=== PATIENT | male | born 1940 | race Caucasian/White ===

== ENCOUNTER → 2016-07-13 | Outpatient (CLI) | payer MEDICARE, OTHER ==
[~2016-07-13] MED LIST: CELEXA DPS20 MG PO; COMPAZINE10 MG PO; COUMADIN10 MG PO; COUMADIN7.5 MG PO; DECADRON-DPS1 MG PO; DECADRON-DPS4 MG PO; DELTASONE DPS20 MG PO; DOCUSATE SODIU100 M1 PO; DUONEB DPS3 ML IH; GLUCOPHAGE DPS850 MG PO; GLUCOPHAGE-DPS500 MG PO; KEPPRA DPS500 MG PO; LANOXIN DPS0.125 MG PO; LASIX DPS40 MG PO; LEVAQUIN DPS500 MG PO; LEVEMIR100 UNIT/1 SQ; LOVENOX DP40 MG/0.4 SQ; MICRO-K DPS10 MEQ PO; NORCO 5-325 TA1 EACH PO; NORMAL SALINE FL5 ML IV; NOVOLIN N100 UNIT/1 SQ; NOVOLIN R100 UNIT/1 SQ; PEPCID DPS20 MG PO; TYLENOL DPS325 MG PO; VANTIN DPS200 MG PO; VITAMIN B-121000 MCG PO; VITAMIN D31000 UNIT PO; ZEBETA5 MG PO; ZIAC 2.52.5 MG PO
== END | disposition home or self-care (01) ==
LOC: PTH.S 07-12 15:00
DX: R04.2 Hemoptysis (principal)

== ENCOUNTER 2016-07-14 06:28 | Day surgery (SDC) | payer MEDICARE, OTHER ==
[~2016-07-14] VITALS: Ht 185.4 cm; Wt 105.6 kg
[2016-10-23] MEDS ORDERED: LANOXIN DPS0.125 MG PO (08:31)
[2016-10-23] MEDS ORDERED: ZEBETA5 MG PO (08:31)
[2016-10-23] MEDS ORDERED: CELEXA DPS20 MG PO (08:31)
[2016-10-23] MEDS ORDERED: GLUCOPHAGE DPS850 MG PO (08:31)
[2016-10-23] MEDS ORDERED: VITAMIN B-121000 MCG PO (08:32)
[2016-10-23] MEDS ORDERED: VITAMIN D31000 UNIT PO (08:32)
[2016-10-23] MEDS ORDERED: TYLENOL DPS325 MG PO (08:32)
[2016-11-15] MEDS ORDERED: KEPPRA DPS500 MG PO (13:58)
[2016-11-15] MEDS ORDERED: LANOXIN DPS0.125 MG PO (13:59)
[2016-11-15] MEDS ORDERED: LOVENOX DP40 MG/0.4 SQ (14:01)
[2016-11-15] MEDS ORDERED: NOVOLIN R100 UNIT/1 SQ (14:03)
[2016-11-15] MEDS ORDERED: DECADRON-DPS4 MG PO (14:04)
[2016-11-15] MEDS ORDERED: NORMAL SALINE FL5 ML IV (14:05)
[2016-11-15] MEDS ORDERED: NOVOLIN N100 UNIT/1 SQ (14:05)
[2016-12-02] MEDS ORDERED: DECADRON-DPS4 MG PO ×2 (07:59)
[2016-12-02] MEDS ORDERED: DECADRON-DPS1 MG PO (07:59)
[2016-12-02] MEDS ORDERED: DUONEB DPS3 ML IH (08:00)
[2016-12-02] MEDS ORDERED: KEPPRA DPS500 MG PO (08:00)
[2016-12-02] MEDS ORDERED: VANTIN DPS200 MG PO (08:00)
[2016-12-02] MEDS ORDERED: LOVENOX DP40 MG/0.4 SQ (08:01)
[2016-12-02] MEDS ORDERED: TYLENOL DPS325 MG PO (08:01)
== END 2016-07-14 10:15 | disposition home or self-care (01) ==
LOC: RAD.S 06:28 → EDSTATUS 08:00 → RAD.S 08:00
PROC: B543ZZA Ultrasonography of Right Jugular Veins, Guidance (ICD-10-PCS; principal; 2016-07-14)
PROC: B513YZA Fluoroscopy of Right Jugular Veins using Other Contrast, Guidance (ICD-10-PCS; principal; 2016-07-14)
PROC: 05HM33Z Insertion of Infusion Device into Right Internal Jugular Vein, Percutaneous Approach (ICD-10-PCS; principal; 2016-07-14)
DX: C34.32 Malignant neoplasm of lower lobe, left bronchus or lung (principal); C34.10 Malignant neoplasm of upper lobe, unspecified bronchus or lung; I10 Essential (primary) hypertension; R04.2 Hemoptysis; Z79.899 Other long term (current) drug therapy

== ENCOUNTER 2016-08-01 10:43 | Inpatient (IN) | payer MEDICARE, OTHER ==
[~2016-08-01] VITALS: Ht 185.4 cm; Wt 97.8 kg
--- NOTE | 2016-08-09 21:19 | ER ---
ADMIT: 08/01/2016 RM/LOC: 427 [facility] MR#: [id number] 2620 [facility] [address] [place], [place] [address] SERA HART [address] [place] [address] Emergency Room Report SEX: M AGE: 75 : 1940 DATE: 08/01/2016 ADDENDUM: CHIEF COMPLAINT: Shortness of breath. HISTORY OF PRESENT ILLNESS: This is a 75-year-old male who was actually sent over from Oncology for fever and pneumonia. They did a chest x-ray over there that showed right upper lobe pneumonia. 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 MEDICATIONS: Please see nurse's note. ALLERGIES: NO KNOWN ALLERGIES. SOCIAL HISTORY: Denies any tobacco, drug, or alcohol. FAMILY HISTORY: Noncontributory. REVIEW OF SYSTEMS: CONSTITUTIONAL: Does have fevers and chills. CARDIOVASCULAR AND RESPIRATORY: Denies really any chest pain, but is more short of breath. All systems otherwise negative. PHYSICAL EXAMINATION: VITAL SIGNS: Blood pressure 126/65, pulse is 101 respirations 26, temp is 100.1, tympanic saturation oxygen is 93% on room air. GENERAL APPEARANCE: General appearance of the patient, mild distress but alert. HEENT: Pharynx is slightly dry but no tonsillar swelling or exudate. NECK: Supple heart is stop borderline tachycardia but no murmurs, rubs, or gallops. LUNGS: Decreased bilateral. Actually, more coarse on the left. ABDOMEN: Soft, nontender. No distention. SKIN: Normal color, warm, and dry. No rashes noted EXTREMITIES: No pedal edema. NEURO/PSYCH: He is alert and oriented x3. Mood and affect normal. Course in ER sepsis protocol was ordered. Overall findings, again he does have right upper lobe pneumonia. ADMIT: 08/01/2016 RM/LOC: 427 [facility] MR#: [id number] [address] [address] SERA HART [address] [place] [address] Emergency Room Report SEX: M AGE: 75 : 1940 LABS: Lactic acid elevated at 2.5, he has A positive blood. CMP normal except for glucose of 277 creatinine is 1.6, inorganic phosphorus is 2, told bilirubin 2.2. His albumin is low at three 2.6 magnesium is 1.7. GFR is 42. His troponin is elevated at 0.024. Otherwise, his CMP is normal. UA showed 2+ protein, 30 glucose INR is 1.68. CBC is normal. Procalcitonin elevated at 1.17. CLINICAL IMPRESSION: Right upper lobe pneumonia. DISPOSITION: Again stable at discharge. Blood pressures have been normal while down here in emergency room. JIMBO Welch / Greg Forrest MD / modl JOB #: [id number] CC: Jon Elizabeth MD, Attending Physician Jon Elizabeth MD, Family Physician
[2016-08-12] MEDS ORDERED: LASIX DPS40 MG PO (21:14)
[2016-08-12] MEDS ORDERED: COMPAZINE10 MG PO (21:15)
[2016-08-12] MEDS ORDERED: LEVEMIR100 UNIT/1 SQ (21:15)
[2016-08-12] MEDS ORDERED: NORCO 5-325 TA1 EACH PO (21:15)
[2016-08-12] MEDS ORDERED: LANOXIN DPS0.125 MG PO (21:15)
[2016-08-12] MEDS ORDERED: ZIAC 2.52.5 MG PO (21:15)
[2016-08-12] MEDS ORDERED: GLUCOPHAGE-DPS500 MG PO (21:15)
[2016-08-12] MEDS ORDERED: DOCUSATE SODIU100 M1 PO (21:16)
[2016-08-12] MEDS ORDERED: LEVAQUIN DPS500 MG PO (21:16)
[2016-08-12] MEDS ORDERED: DELTASONE DPS20 MG PO (21:16)
[2016-08-12] MEDS ORDERED: PEPCID DPS20 MG PO (21:16)
[2016-08-12] MEDS ORDERED: MICRO-K DPS10 MEQ PO (21:16)
[2016-08-12] MEDS ORDERED: COUMADIN10 MG PO (21:17)
[2016-08-12] MEDS ORDERED: DUONEB DPS3 ML IH (21:17)
[2016-08-12] MEDS ORDERED: COUMADIN7.5 MG PO (21:17)
--- NOTE | 2016-09-05 12:38 | HP ---
ADMIT: 08/01/2016 RM/LOC: 427 [facility] MR#: [id number] [address] [facility] [address] [place], [place] [address] SERA HART [address] [place] [address] History and Physical SEX: M AGE: 75 : 1940 DATE OF SERVICE: CHIEF COMPLAINT: Right upper lobe pneumonia. CLINICAL HISTORY: Indra is a patient with carcinoma of the lung, previous partial resection and radiation and subsequent recurrence with ongoing radiation in the past 3 weeks to central and left and right chest as well as 3 weeks of chemotherapy, partially completed yesterday. He presented to Oncology with increasing dyspnea over a very short period time. He had not had a significant change in cough. He had not noticed any fever. When he came into the emergency room, he was running a low-grade temperature. His white count was normal, but may have been suppressed due to chemotherapy and his chest x-ray showed a significant infiltrate in right upper lobe. Again he had not noticed signs or symptoms of pneumonia in the typical fashion, but he had noticed dyspnea which had increased rather significantly just the 6-8 hours prior to presenting to Oncology for his treatments. PAST MEDICAL HISTORY: Atrial fibrillation, coronary artery disease, COPD, CHF, diabetes, Coumadin management, prior presumed ruptured spleen with hematoma and organization, previous biopsy negative, prior stenting. He has been having hemoptysis for the last one month and PET scans have revealed increasing tumor burden for which he has started treatment. SOCIAL HISTORY: He is but lives by himself. Has one daughter and 2 grandchildren. He does not currently smoke and he has not had any alcohol for 20+ years. REVIEW OF SYSTEMS: His appetite has been off but he has had no nausea or vomiting. He is voiding well. He has not had any bowel issues. He has not had any pain. He denies any specific headache, change in vision, lightheadedness, and his blood sugars when he tested at home has been acceptable in spite of the use of his chemotherapy, radiation, and Decadron. He attributes some of this to his reduced appetite. He has lost some weight but it has not been dramatic. PHYSICAL EXAMINATION: GENERAL: Physical examination reveals a white male with oxygen in place. He is lying in bed. He is not short of breath visibly. HEAD AND NECK: Examination is otherwise unremarkable. LUNGS: Somewhat unimpressive compared to the extent of his infiltrate on chest x-ray. HEART: Irregular. ABDOMEN: Benign. EXTREMITIES: Showed no definite clubbing or cyanosis. NEUROLOGICAL: Except for hearing loss which is [id number], he really has no specific focal findings. He has some amputation of the distal tips of his ADMIT: 08/01/2016 RM/LOC: 427 [facility] MR#: [id number] [address] [place] [id number] [facility] [address] [place] [address] History and Physical SEX: M AGE: 75 : 1940 fingers on the right hand of old nature. Chest x-ray shows an infiltrate which is rather extensive right upper lobe. IMPRESSION: 1. Pneumonia. 2. Rule out radiation pneumonitis. 3. Rule out lymphangitic spread of carcinoma of the lung. 4. Recent radiation and chemotherapy. 5. Atrial fibrillation. 6. Congestive heart failure. 7. Coronary artery disease. 8. Diabetes. 9. History of prior splenic hematoma with organization. 10.Chronic obstructive pulmonary disease. 11.Hyperlipidemia. 12.Borderline renal insufficiency. 13.Metformin therapy. TREATMENT: We will put him on some high-dose steroids and continue with antibiotics. Undertake a CT scan to rule out the possibility of lymphangitic spread and/or radiation pneumonitis and continue with pulmonary hygiene and oxygen. We will confirm his code status with him. Jon Elizabeth MD/ connor JOB #: [id number] CC: Jon Elizabeth, Attending Physician Jon Elizabeth, Family Physician
[2016-10-23] MEDS ORDERED: GLUCOPHAGE DPS850 MG PO (08:31)
[2016-10-23] MEDS ORDERED: CELEXA DPS20 MG PO (08:31)
[2016-10-23] MEDS ORDERED: LANOXIN DPS0.125 MG PO (08:31)
[2016-10-23] MEDS ORDERED: ZEBETA5 MG PO (08:31)
[2016-10-23] MEDS ORDERED: VITAMIN B-121000 MCG PO (08:32)
[2016-10-23] MEDS ORDERED: TYLENOL DPS325 MG PO (08:32)
[2016-10-23] MEDS ORDERED: VITAMIN D31000 UNIT PO (08:32)
--- NOTE | 2016-11-03 10:49 | DS ---
ADMIT: 08/01/2016 RM/LOC: 428 [facility] MR#: [id number] [address] [address] SERA GLASGOW [address] [place] [address] Discharge Summary SEX: M AGE: 75 : 1940 ADMISSION DATE: 08/01/2016 DISCHARGE DATE: 08/12/2016 DISMISSAL DIAGNOSES: 1. Pneumonia right upper lobe. 2. Radiation pneumonitis. 3. 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 4. Emphysema. 5. Chronic atrial fibrillation. 6. Coronary artery disease. 7. Congestive heart failure. 8. Hypoxemia, improved. 9. Chronic oxygen therapy. 10.Neutropenia secondary to prior chemotherapy. 11.Diabetes with hyperglycemia secondary to Decadron therapy. 12.Nonsustained ventricular tachycardia. CLINICAL HISTORY: Sera Glasgow was admitted through Oncology with the sudden onset of dyspnea associated with chronic hemoptysis over the last several weeks. He had been undergoing radiation therapy and had previous chemotherapy including Carboplatin, in sequential doses and received Decadron pre-chemotherapy. He developed moderate neutropenia, undoubtedly contributing to some of his pneumonia. LABORATORY AND DIAGNOSTIC DATA: Not available for this dictation. X-ray studies showed CT scan showing extensive masslike consolidation extending from the hilum into the right upper lobe of the lung with extensive central adenopathy. A repeat CT scan showed persistent soft-tissue consolidation with some modest improvement in the consolidative changes. A chest x-ray on 08/11/2016 after 10 days of antibiotics, showed right upper lobe consolidation persistent with less air bronchograms, and no evidence of empyema, or loculated effusion. EKG showed old inferior wall myocardial infarction, nonspecific ST changes, left axis deviation, and atrial fibrillation with a heart rate of 87. HOSPITAL COURSE: The patient was brought in and placed on IV antibiotics. His sputum production decreased. His fever improved, and adjustments were made in his anticoagulation therapy. With the anticipation of possible bronchoscopy, but given his clinical improvement in spite of his radiological failure, we opted to forego bronchoscopy. Diagnostic concerns clearly were that radiation therapy was part of his inflammatory change. ADMIT: 08/01/2016 RM/LOC: 428 [facility] MR#: [id number] [address] [address] [facility] [address] [place] [address] Discharge Summary SEX: M AGE: 75 : 1940 Dr. Carroll was kind enough to follow him intermittently through the hospital stay and recommended changes for future chemotherapy. Sliding scale insulin was used. Temperature remained normal. Levemir was adjusted, and we tapered off Decadron on to lower dose prednisone. Unfortunately, he started developing increasing dyspnea prompting a boost in his steroids. This was effective and improving his clinical condition and hypoxemia. TB skin test was repeatedly negative. Lovenox bridging was employed. He was ultimately dismissed on 08/12/2016 with Coumadin boost, and resumption of metformin 500 mg p.o. b.i.d., Levaquin 500 daily for 10 additional days. An appointment with Oncology and myself, and continued follow up with Dr. Guevara in Radiation Therapy. We recommended continuous home oxygen, Levemir 15 units b.i.d. in addition to prednisone 20 mg p.o. daily, Lanoxin 0.125 daily, Lasix 40 mg every other day, Micro-K 10 mEq b.i.d., Pepcid 20 p.o. b.i.d., Zebeta 7.5 mg daily, DuoNebs q.i.d. p.r.n. His meropenem was discontinued, and close followup arranged with the very real possibility that lingering radiation pneumonitis may require longer term steroid treatment. Jon Elizabeth MD/ connor JOB #: [id number] CC: Jon Elizabeth MD, Attending Physician Jon Elizabeth MD, Family Physician Tyler Carroll MD
[2016-11-15] MEDS ORDERED: KEPPRA DPS500 MG PO (13:58)
[2016-11-15] MEDS ORDERED: LANOXIN DPS0.125 MG PO (13:59)
[2016-11-15] MEDS ORDERED: LOVENOX DP40 MG/0.4 SQ (14:01)
[2016-11-15] MEDS ORDERED: NOVOLIN R100 UNIT/1 SQ (14:03)
[2016-11-15] MEDS ORDERED: DECADRON-DPS4 MG PO (14:04)
[2016-11-15] MEDS ORDERED: NORMAL SALINE FL5 ML IV (14:05)
[2016-11-15] MEDS ORDERED: NOVOLIN N100 UNIT/1 SQ (14:05)
[2016-12-02] MEDS ORDERED: DECADRON-DPS1 MG PO (07:59)
[2016-12-02] MEDS ORDERED: DECADRON-DPS4 MG PO ×2 (07:59)
[2016-12-02] MEDS ORDERED: DUONEB DPS3 ML IH (08:00)
[2016-12-02] MEDS ORDERED: VANTIN DPS200 MG PO (08:00)
[2016-12-02] MEDS ORDERED: KEPPRA DPS500 MG PO (08:00)
[2016-12-02] MEDS ORDERED: TYLENOL DPS325 MG PO (08:01)
[2016-12-02] MEDS ORDERED: LOVENOX DP40 MG/0.4 SQ (08:01)
== END 2016-08-12 16:30 | disposition home or self-care (01) | DRG 205 ==
LOC: ER 10:43 → 4PCU 14:00
PROVIDERS: ADMIT Internal Medicine
DX: J70.0 Acute pulmonary manifestations due to radiation (principal); J96.21 Acute and chronic respiratory failure with hypoxia; I47.2 Ventricular tachycardia; C34.92 Malignant neoplasm of unspecified part of left bronchus or lung; C34.91 Malignant neoplasm of unspecified part of right bronchus or lung; I50.9 Heart failure, unspecified; J44.0 Chronic obstructive pulmonary disease with (acute) lower respiratory infection; R04.2 Hemoptysis; J18.9 Pneumonia, unspecified organism; I48.91 Unspecified atrial fibrillation; E11.9 Type 2 diabetes mellitus without complications; I10 Essential (primary) hypertension; E78.5 Hyperlipidemia, unspecified; I25.10 Atherosclerotic heart disease of native coronary artery without angina pectoris; Z79.01 Long term (current) use of anticoagulants; Z11.1 Encounter for screening for respiratory tuberculosis; Z99.81 Dependence on supplemental oxygen; Z95.1 Presence of aortocoronary bypass graft; Z79.4 Long term (current) use of insulin; Z85.46 Personal history of malignant neoplasm of prostate; Z79.84 Long term (current) use of oral hypoglycemic drugs

== ENCOUNTER 2016-10-02 10:23 | Inpatient (IN) | payer MEDICARE, OTHER ==
[~2016-10-02] VITALS: Ht 185.4 cm; Wt 101.2 kg
--- NOTE | ~2016-10-02 | ECH ---
Transthoracic Echocardiography Report (TTE) Demographics Patient Name SERA HART Date of Study 10/04/2016 W Patient Number [id number] Visit Number [id number] Date of 1940 Room Number 526 Accession Number [id number] Gender Male Age 75 year(s) Referring Glenn Alvarado MD Candy Starch Mold Printer Kimmie Rahman [facility] Physician Physician Interpreting Chris Sidhu Lemon Grower Physician Supervising Ordering Physician Glenn Alvarado MD, MD/P Nurse Stress Voting Machine Repairer Conclusions Contractility Score Summary At rest the following contractility abnormalities were noted: Hypokinesis of the Mid karel-septal, the Mid infero-septal, the Mid inferior, the Apical inferior, the Apical septal, the Basal infero-septal, the Apical anterior, the Basal inferior and the Apical cap segments. Contractility of all other segments appeared normal. Summary Technically fair exam. The estimated left ventricular ejection fraction is 40-45%. Segmental wall motion abnormality. Mild to moderate left ventricular hypertrophy. The left atrium is mildly dilated by LA volume index measurement. There is trivial aortic regurgitation by color Doppler. The ascending aorta appears moderately dilated. The maximum diameter measures 4.5 cm. Mild mitral regurgitation by color Doppler. Recommendation The patient will be given the results of this study by the physician who ordered the exam. Procedure Type of Study TTE procedure:Echo Complete SF. Procedure Date Date: 10/04/2016 Start: 09:20 Technical Quality: Fair Indications:Atrial fibrillation and Coronary artery disease. Additional Indications:?SBE Appropriate Use Criteria: 9 Height: 73 inches Weight: 221 pounds BSA: 2.25 m Rhythm: Atrial fibrillation HR: 67 bpm BP: 140/84 mmHg M-Mode/2D Measurements LV Diastolic Dimension: 4.7 cm LV Systolic Dimension: 3.1 cm LV Septum Diastolic: 1.38 cm LV PW Diastolic: 1.59 cm AO Root Dimension: 3.04 cm Cardiac Output: 4.39 l/min LA Dimension: 4.69 cm Cardiac Index: 1.95 l/min*m RV Diastolic Dimension: 3.56 cm LA volume index: 40 ml/m LVOT: 2.39 cm LVOT VTI: 14.6 cm RV Base: 3.39 cm LV Stroke volume: 65.47 ml RV Mid: 2.45 cm LV Stroke volume index: 29.1 ml/m RV Length: 7.5 cm Doppler Measurements AV Peak Velocity: 0.96 m/s MV Peak E-Wave: 0.89 m/s AV Peak Gradient: 3.69 mmHg AV Mean Gradient: 2.2 mmHg LVOT Peak Velocity: 0.74 m/s AV Area (Continuity):3.12 cm PV Peak Velocity: 1.07 m/s PV Peak Gradient: 4.58 mmHg RA Area: 16 cm Findings Left Ventricle The left ventricle is normal in size . Mild to moderate left ventricular hypertrophy. Diastolic function indeterminate due to patient's arrhythmia. Right Ventricle Normal right ventricle structure and function. Left Atrium The left atrium is mildly dilated by LA volume index measurement. Right Atrium Normal right atrial size. Mitral Valve Normal mitral valve structure and function. Mild mitral regurgitation by color Doppler. Aortic Valve Normal aortic valve structure and function. There is trivial aortic regurgitation by color Doppler. Tricuspid Valve Normal tricuspid valve structure and function. Pulmonic Valve Normal pulmonic valve structure and function. Pericardial Effusion No evidence of pericardial effusion. Miscellaneous The ascending aorta appears moderately dilated. The maximum diameter measures 4.5 cm. Pleural Effusion No evidence of pleural effusion. Contractility Score LV regional wall motion:(0-Non visualized 1-Normal 2-Hypokinesis 3-Akinesis 4-Dyskinesis 5-Aneurysm) Signature
[~2016-10-02 10:23] MED LIST changes: -CELEXA DPS20 MG PO; -DECADRON-DPS1 MG PO; -DECADRON-DPS4 MG PO; -GLUCOPHAGE DPS850 MG PO; -KEPPRA DPS500 MG PO; -LOVENOX DP40 MG/0.4 SQ; -NORMAL SALINE FL5 ML IV; -NOVOLIN N100 UNIT/1 SQ; -NOVOLIN R100 UNIT/1 SQ; -TYLENOL DPS325 MG PO; -VANTIN DPS200 MG PO; -VITAMIN B-121000 MCG PO; -VITAMIN D31000 UNIT PO; -ZEBETA5 MG PO
--- NOTE | 2016-10-03 11:08 | CO ---
ADMIT: 10/02/2016 RM/LOC: 530 [facility] MR#: [id number] [address] [address] SERA HART [address] [place] [address] Consultation SEX: M AGE: 75 : 1940 DATE OF CONSULTATION: 10/02/2016 ATTENDING PHYSICIAN: Jon Elizabeth CONSULTING PHYSICIAN: Onelia Shabazz MD HISTORY OF PRESENT ILLNESS: I saw this 75-year-old male in the hospital today. He was admitted this evening. He came in complaining primarily of severe headache involving the entire head and has had a headache now for about 4 to 5 days and was able to control it by taking analgesics; however, today, the headache got quite severe, and he could not control it with an analgesic pain medication that he normally took, consequently he came to the hospital and investigations carried out in the hospital. Initial CT scan of the brain showed a lesion in the right cerebellar hemisphere with surrounding edema and without any accompanying hydrocephalus. He went on to have an MRI of the brain with and without contrast. It still confirmed the right cerebellar lesion, but it was not enhancing, and on talking to the radiologist, there was a small lesion in the right temporal lobe. He does not have any hydrocephalus. He denies any problems with his gait. He denies any weakness in his upper or lower extremities. Denies any double vision. Relevant portion of his medical history that he had a left lower lobectomy 2 years ago for CA of the lung. PAST SURGERY HISTORY: As noted above. He had a left lower lobectomy for cancer of the lung. He is diabetic, hypertensive, and heart CABG about 1-1/2 years ago. SOCIAL HISTORY: He stopped smoking about 4 years ago. He had been smoking prior to that for 50 years. He does not drink alcohol. ALLERGIES: NO KNOWN ALLERGIES TO MEDICATION. MEDICATIONS: See the list in the chart. FAMILY HISTORY: Noncontributory. REVIEW OF SYSTEMS: Denies any weakness or numbness in the upper or lower extremities. He as noted in the history has headaches. No diplopia. No nausea. No vomiting. Denies any dizziness. He denies any abdominal pain. Denies any chest pain. PHYSICAL EXAMINATION: GENERAL: On examination in the hospital, this is a 75- year-old, male who was awake and alert. His Kaylen Coma Score was 15. Answered questions appropriately. Obeyed commands. HEENT: Normocephalic. He has nystagmus on right lateral gaze. NECK: No tenderness on palpating the cervical spinous processes. No masses palpable in the neck. CHEST: Scattered rhonchi in the right lung base. HEART: The heart rate was irregular. ADMIT: 10/02/2016 RM/LOC: 530 [facility] MR#: [id number] [address] [place] [id number] [place] [address] Consultation SEX: M AGE: 75 : 1940 ABDOMEN: Soft. NEUROLOGIC: The cranial nerve examination was normal. Motor examination was normal. Sensory examination was normal. Reflexes are markedly diminished in the upper extremities. The knee jerks were present bilaterally. Ankle jerks were diminished, but present bilaterally. Toes were downgoing. His finger- nose testing was well done. 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 The only problem here is that it is not enhancing as one would expect a metastatic tumor to do, but I also feel that this is what it is, and this also is buttressed by the fact that on the CT scan this lesion is hyperintense compared to normal brain, but not as intense as one would expect from an acute hemorrhage, appears to be probably a resolving one. 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 My recommendation at this stage is to go ahead and put him on Decadron like you already did anyway and see what effect this has on his headaches. The two options here, one would be to go ahead and excise the cerebellar lesion, which is quite big; however, I should point out that he uses oxygen at night and the question would be whether he would be a good surgical candidate. In addition he is just getting over a bout of pneumonia. The other option would then be to see how he does with the Decadron and follow him with repeat scans to see if one could be definite as to what this is. My feeling would be that if he could be worked up and is well enough for surgery, at the very least, one would want to take a biopsy of the cerebellar lesionto know exactly what it is that we are dealing with. in the right cerebellar This was explained to him in the hospital today. Onelia Shabazz MD/ connor JOB #: [id number] CC: Jon Elizabeth, Attending Physician Jon Elizabeth, Family Physician
--- NOTE | 2016-10-07 07:38 | OR ---
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 PROCEDURES: 1. Right-sided retrosigmoid craniotomy for evacuation of cerebellar hemorrhage and tumor. 2. Intraoperative use of microscopy for microsurgical dissection technique. INDICATION: I gained informed consent from the patient's daughter due to the fact that he had some worsening over the day with some increase in hemorrhage in comparison to his immediate postoperative CT scan from earlier in the day. We discussed risks, benefits, and alternatives of return to the OR with risks including, but not limited to, MA, DVT, PE, pneumonia, , loss of bowel or bladder, sexual function, paralysis, brainstem injury, inability to fully resect cerebellar damage, permanent loss of ambulatory capacity, dizziness, diplopia, scanning speech, recurrent hemorrhage, recurrent tumor, need for further surgery, as well as others. I believe he understood the risks, benefits, and alternatives of surgery and wished to proceed urgently. DESCRIPTION OF PROCEDURE: The patient was taken to the operative theater and placed under general endotracheal anesthesia in supine position. I then turned to left lateral decubitus position with padding and axillary roll placement throughout. Once this was completed, he was prepped and draped in the usual sterile fashion. The justin were taken out from his prior incision. The sutures were cut and the retractors were placed. The plate and bone fragments were removed. The bone dust was saved for reimplantation later and then the Tisseel and DuraGen were removed. Based on the CT scan, it was clear that I could take another 1.5 cm or so off towards the ear and as such I drilled off more saving the bone dust for reimplantation later. Once I had done this, the dura was opened somewhat more widely and the cerebellum under pressure was noted. The microscope was brought into the field at this time. The rest of the case was done with microsurgical dissection technique. The bipolar and Sonopet cavitating aspirator were utilized to resect cerebellum coming down to clot and vascular tumor, which was seen previously. This was further suctioning out to normal cerebellum and as deep as instrumentation could reach. This was completed circumferentially. There was no clear sign of remaining tumor. There was some clot and some stained appearing cerebellum even at depth although it could not be certain that this was not jade here at this point. Pristine hemostasis was obtained over lengthy time. Ensuring there was no further hemorrhage, a minimal amount of fibular material was left along the bed. Copious irrigation was utilized to ensure there was no further hemorrhage and the pieces of cerebellum and tumor as well as hemorrhage were ADMIT: 10/02/2016 RM/LOC: 314 [facility] MR#: [id number] [address] [id number] [place] [address] [facility] [address] [place] [address] Operative/Delivery Room Report SEX: M AGE: 75 : 1940 sent for pathological analysis. At this point, everything appeared to be pristinely hemostatic and attention was turned to closure. The dura was then able to be closed primarily and as such, DuraGen and Tisseel were placed over that. The bone fragments were placed over this with a plate over top of the craniectomy site. Once this was completed, chest tube was put on and then 0 Ethibond was used to sew the musculature and fascia back together. Locking baseball type 2-0 nylon was used on the skin. COMPLICATIONS: None. ESTIMATED BLOOD LOSS: 100 mL. SPECIMEN: Cerebellar tissue and clot sent for pathological determination. Jassi Maki MD/ connor JOB #: [id number] CC: Jon Elizabeth, Attending Physician Jon Elizabeth, Family Physician
--- NOTE | 2016-10-08 17:58 | ER ---
ADMIT: 10/02/2016 RM/LOC: 530 [facility] MR#: [id number] 2620 [facility] [address] [place], [place] [address] SERA HART [address] [place] [address] Emergency Room Report SEX: M AGE: 75 : 1940 DATE: 10/02/2016 ADDENDUM: This is a 75-year-old white male with history of lung cancer, coming with headache. It has been gone for a few days. It is worse. CT scan reveals a new lesion in his brain. He does have lung cancer. He does have a mass in his lung. At this time, he will need to be admitted. We did give him Dilaudid. INR is pending. He is not bleeding at this time. CONDITION ON DISCHARGE: Serious, but stable. Greg Forrest MD/ connor JOB #: [id number] CC: Jon Elizabeth MD, Attending Physician Jon Elizabeth MD, Family Physician
--- NOTE | 2016-10-11 08:38 | OR ---
ADMIT: 10/02/2016 RM/LOC: 415 [facility] MR#: [id number] 2620 [facility] [address] [place], [place] [address] SERA HART [address] [place] [address] Operative/Delivery Room Report SEX: M AGE: 75 : 1940 SURGERY DATE: 10/05/2016 SURGEON: Jassi Maki MD PREOPERATIVE DIAGNOSES: Right cerebellar hemorrhagic lesion as well as right temporal lobe hemorrhagic lesion. POSTOPERATIVE DIAGNOSES: Right cerebellar hemorrhagic lesion as well as right temporal lobe hemorrhagic lesion. PROCEDURES: 1. Biopsy with possible evacuation of the right-sided cerebellar hematoma with request for biopsy due to the fact that the patient has prostate cancer, lung cancer, as well as mycobacterial infection to better diagnose the etiology of the multiple intracranial lesions. 2. Stereotactic right-sided retrosigmoid/suboccipital craniotomy for biopsy and possible evacuation of right cerebellar hematoma with possibly from tumor or abscess. 3. Intraoperative use of microscopy with microsurgical dissection technique. DEPARTMENT ASSISTANT: Shena Contreras APRN INDICATION: I had a lengthy discussion with Mr. Brandi Poe on the regarding the risks, benefits, and alternatives of surgery with risks including, but not limited to, [place], DVT, PE, pneumonia, , loss of bowel, bladder, sexual function, CSF leak, failure to diagnose condition, need for further surgical intervention, hemorrhage at the site, neurological worsening, cerebellar deficits as well as others. We discussed the fact that this is mostly biopsy for the specimen especially for mycobacterial growth as that is one of the main concerns as well as the fact that Dr. Aburto as well as I previously discussed with the patient possibly waiting for some of the hemorrhage to clear up as well as the fact that he has not been able to lay still for the MRI with concerns if he is unable to for stereotaxy, he will have has less optimal visualization intraoperatively. I spent 45 minutes with him on the in discussion of these issues. This was above and beyond the 10 minute examination I performed that day. I believe after talking with him and re-discussing with him on the , he understands the risks, benefits, and alternatives of proceeding ahead. DESCRIPTION OF PROCEDURE: After gaining informed consent, the patient was taken to the operative theater, placed under general endotracheal anesthesia in supine position. A time-out was utilized to ascertain the correct site and side of surgery as well as other pertinent patient historical information. Counts were obtained at the beginning and end of the case with no change betwixt the 2. Antibiotics were given within 1 hour of incision. The patient was turned into left lateral decubitus position with pressure points purposely padded prior to performing the procedure. He was prepped and draped in usual sterile fashion. A time-out was utilized to ascertain the ADMIT: 10/02/2016 RM/LOC: 415 [facility] MR#: [id number] [address] [place] [address] Operative/Delivery Room Report SEX: M AGE: 75 : 1940 correct site and side of surgery as well other pertinent patient historical information. Counts were obtained at the beginning and end of the case with no change betwixt the 2. Antibiotics were given within 1 hour of incision. The draping was performed after utilizing his fiducialzed scalp to co-register his calvarium with the [employer] intraoperative stereotactic equipment. A right-sided semi-linear incision was planned in the retrosigmoid region. This was then taken down over top of the . The planning was suboptimal due to the patient's movement in the MR scan, the T2 images appeared to be reasonably without motion artifact, but the T1 images with contrast was less useful making a precised delineation of the transverse or sigmoid junction was reliable. Utilizing anatomical landmarks, a bur hole was fashioned fashioning a craniectomy and saving the bone dust in a retrosigmoid region for placement of the bone dust later. This was taken down to the dura very cautiously, this was inferior to the transverse sinus and posterior to the sigmoid sinus. The stereotaxy even though less than optimal accurate revealed that this was likely over an area that the lesion could be accessed. The microscope was brought into the field. The rest of the case was done with microsurgical dissection technique. The dura was sharply opened and there was clearly pressure from the cerebellum. The cerebellum was electrocoagulated and entrance site was established. This was suctioning down to this area revealed likely tumor that was very similarly colored to the cerebellum, although hypervascular. This did not appear to be an AVM and did not bleed like a vascular lesion, was simply more vascular in nature. Biopsies specimens were obtained, then the [employer] trap was utilized to suction from the center of this area. The small ring-enhancing component in the center of this did appear to be reliably discerned on the imaging and this area was entered and suctioned and sent for mycobacterial culture. Once this was completed, further biopsy was taken, there was no real sign of large hemorrhagic clot, only hypervascular, slightly differently appearing tissue. This was further suctioned out until there was no sign of further bleeding. There appeared to be some reasonable decompression without ability to better discern the area and especially with the patient's relative lack of symptomatology and lack of hydrocephalus. At this point, enough tissue had been obtained for evaluation that determined we should obtain pristine hemostasis and complete the case. No frozen pathological specimen was obtained. I requested pathology due to mycobacterium. Once pristine hemostasis was obtained, attention was turned to closure. Multiple hemostatic agents were utilized in the bed of the cerebellum and there was no further sign of any bleeding and this appeared to be pristinely hemostatic. The dura was very thin and unable to be primarily reapproximated and as such DuraGen and Tisseel was placed over this area. The bone was put back into place in a powdered area over top of the craniectomy site and then a cranial plate was then screwed into place. The wound was closed in the hypodermic and muscular tissue with simple interrupted 2-0 Ethibond, simple interrupted 2-0 Vicryl was used in hypodermic tissue, and justin on the skin. ADMIT: 10/02/2016 RM/LOC: 415 [facility] MR#: [id number] [address] [address] [facility] [address] [place] [address] Operative/Delivery Room Report SEX: M AGE: 75 : 1940 Jose M Ben assisted with suction, retraction, and closure at the end of the case. COMPLICATIONS: None. ESTIMATED BLOOD LOSS: Charted. SPECIMEN: Cerebellar lesion, mycobacterial culture as well as pathological analysis DISPOSITION: Extubated and taken to the intensive care unit moving all 4 extremities with no sign of complication. Jassi Maki MD/ connor JOB #: [id number] CC: Jon Elizabeth, Attending Physician Jon Elizabeth, Family Physician
[2016-10-23] MEDS ORDERED: ZEBETA5 MG PO (08:31)
[2016-10-23] MEDS ORDERED: CELEXA DPS20 MG PO (08:31)
[2016-10-23] MEDS ORDERED: LANOXIN DPS0.125 MG PO (08:31)
[2016-10-23] MEDS ORDERED: GLUCOPHAGE DPS850 MG PO (08:31)
[2016-10-23] MEDS ORDERED: VITAMIN B-121000 MCG PO (08:32)
[2016-10-23] MEDS ORDERED: TYLENOL DPS325 MG PO (08:32)
[2016-10-23] MEDS ORDERED: VITAMIN D31000 UNIT PO (08:32)
--- NOTE | 2016-11-03 10:49 | HP ---
ADMIT: 10/02/2016 RM/LOC: 415 [facility] MR#: [id number] [id number] [place], [place] [address] SERA HART [address] [place] [address] History and Physical SEX: M AGE: 75 : 1940 Corrected: 10/13/2016 0712 djs DATE OF SERVICE: CHIEF COMPLAINT: Headache. CLINICAL HISTORY: Indra came into the Emergency Room with 24 hours' worth of frontal headache. This was not associated with any fall injury, fever, chills, or change in other status. A CT scan was done in evaluation and found a cerebellar lesion, 2 x 3 cm. He is a patient with a background history of a prior lung cancer, undergoing radiation and chemotherapy currently. Approximately 7 weeks ago, he had an extensive right upper lobe pneumonia, presented somewhat precipitously, and was treated. There has been persistent scarring in that area, and he has been on nearly continuous antibiotics up until just approximately 5 to 7 days ago. He has been on steroids due to associated radiation pneumonitis. PAST MEDICAL HISTORY: Includes prior coronary artery bypass grafting, partial lung resection, left low lower lobe for carcinoma, prior subcapsular splenic hematoma and organization, and a history of amputation distal digits right fingers. ILLNESSES: Diabetes, atrial fibrillation, coronary artery disease, congestive failure, and history of mild renal insufficiency recently improved. He has been on anticoagulation therapy, but cannot remember if he took his medications yesterday. He rested all day yesterday as he just did not feel quite right. He drove himself to the emergency room. SOCIAL HISTORY: He is and has one daughter. He is a previous smoker having quit just approximately 1 year ago. He does not drink having quit that many many years ago. He was a retired pattern clerk formed postpartum rn and did a variety of other jobs without definite exposure to asbestos or other pollutants. REVIEW OF SYSTEMS: Bowel and bladder have been unremarkable. He has had no falls or injuries. He denies any change in vision, just a dull headache over the frontal area. He has not had any chest pain or bleeding. LABORATORY DATA: Included an INR of 1.5. Blood sugar was acceptable. Creatinine of 1.3. White count and hemoglobin were normal for his condition. CT scan of the chest demonstrates persistent, but improved infiltrate with areas of tumor necrosis and/or small residual abscess. Previous diagnostic studies included negative TB skin test and sputum test. An echocardiogram did not reveal endocarditis. ADMIT: 10/02/2016 RM/LOC: 415 [facility] MR#: [id number] [address] [place] [place] [id number] [facility] [address] [place] [address] History and Physical SEX: M AGE: 75 : 1940 PHYSICAL EXAMINATION: GENERAL: White male, who appears a little bit slower than his usual state. He is having some headache. He has been given some morphine, however. HEAD AND NECK: No distinct findings. LUNGS: Clear anteriorly. HEART: Without findings including no significant murmur. He was in atrial fibrillation as he has been for several years. ABDOMEN: Benign. EXTREMITIES: Unremarkable. SKIN: No evidence of metastatic implants, significant adenopathy, vasculitis, or other systemic findings. NEUROLOGIC: He answers questions appropriately, has some mild photophobia, but other than that, has no neurological difficulties except mild hearing loss. IMPRESSION: 1. Cerebellar mass, probable metastatic lung cancer. 2. Recent extensive pneumonia right upper lobe without associated endocarditis rule out metastatic infection. 3. Chronic obstructive pulmonary disease. 4. Coronary artery disease, status post single-vessel coronary bypass. 5. History of coronary stenting. 6. Status post partial left lower lobe resection. 7. Chronic atrial fibrillation. 8. Diabetes. 9. Prior smoking history. 10.History of splenic trauma with subcapsular organized scarring. 11.History of renal insufficiency. 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 13.Ongoing radiation and chemotherapy. While this is likely to be malignancy, the possibility of metastatic infection is considered. Because there is a focal area in the cerebellum, we have asked ADMIT: 10/02/2016 RM/LOC: 415 [facility] MR#: [id number] [address] [address] [facility] [address] [place] [address] History and Physical SEX: M AGE: 75 : 1940 Neurosurgery to help us with his evaluation including the possibility of open brain biopsy. An MRI of the brain with contrast is pending. Based upon that study, further studies may be indicated. We would like to start him on IV antibiotics along with coverage for metastatic infection including the possibility of antifungal treatment due to his presumed immunosuppressed status and his steroid therapy. Jon Elizabeth MD/ connor JOB #: [id number] CC: Jon Elizabeth, Attending Physician Jon Elizabeth, Family Physician MD Mehdi Louis MD Corrected: 10/13/2016711 kristen
[2016-11-15] MEDS ORDERED: KEPPRA DPS500 MG PO (13:58)
[2016-11-15] MEDS ORDERED: LANOXIN DPS0.125 MG PO (13:59)
[2016-11-15] MEDS ORDERED: LOVENOX DP40 MG/0.4 SQ (14:01)
[2016-11-15] MEDS ORDERED: NOVOLIN R100 UNIT/1 SQ (14:03)
[2016-11-15] MEDS ORDERED: DECADRON-DPS4 MG PO (14:04)
[2016-11-15] MEDS ORDERED: NORMAL SALINE FL5 ML IV (14:05)
[2016-11-15] MEDS ORDERED: NOVOLIN N100 UNIT/1 SQ (14:05)
[2016-12-02] MEDS ORDERED: DECADRON-DPS4 MG PO ×2 (07:59)
[2016-12-02] MEDS ORDERED: DECADRON-DPS1 MG PO (07:59)
[2016-12-02] MEDS ORDERED: VANTIN DPS200 MG PO (08:00)
[2016-12-02] MEDS ORDERED: DUONEB DPS3 ML IH (08:00)
[2016-12-02] MEDS ORDERED: KEPPRA DPS500 MG PO (08:00)
[2016-12-02] MEDS ORDERED: TYLENOL DPS325 MG PO (08:01)
[2016-12-02] MEDS ORDERED: LOVENOX DP40 MG/0.4 SQ (08:01)
--- NOTE | 2016-12-27 10:28 | DS ---
ADMIT: 10/02/2016 RM/LOC: 415 [facility] MR#: [id number] [address] [place], [place] [address] SERA HART [address] [place] [address] Discharge Summary SEX: M AGE: 75 : 1940 ADMISSION DATE: 10/02/2016 DISCHARGE DATE: 10/12/2016 DISMISSAL DIAGNOSES: 1. Carcinoma of the lung, metastatic to brain with right cerebellar mass. 2. Cerebellar lesion, debulked with biopsy. 3. Temporal lobe lesion, metastatic carcinoma. 4. Postoperative cerebellar bleed with hematoma evacuation. 5. Emphysema. 6. Coronary artery disease. 7. Atrial fibrillation. 8. Generalized deconditioning. CLINICAL HISTORY: Indra was admitted with increasing headaches, some slurring speech, and a change in his sensorium. He was found to have a cerebellar mass and underwent a partial resection and biopsy of such. Postoperatively and perioperatively, he was covered with steroids and antiseizure medications. He did well for 24-48 hours and then had increasing lethargy and increasing headache and studies demonstrated bleed in the area of prior biopsy. He was taken back to surgery by Dr. Jassi Maki and evacuation of hematoma was undertaken with marked improvement in his sensorium. His subsequent hospital course was largely unremarkable and wound care etc., were all unremarkable without complicating features. Obviously, he could not return any anticoagulation and continued to have his atrial fibrillation. Follow up of a right upper lobe pneumonia which grew out atypical mycobacterium several months ago showed continued improvement of that area. His left lung mass remained fairly static and he was ultimately dismissed to skilled care for ongoing therapy and to resume his radiation and chemotherapy. Overall prognosis is certainly guarded with high risk for strokes and subsequent metastatic carcinoma of the lung. Due to his multiple comorbidities and ongoing oxygen, pulmonary hygiene etc., his stay at the ADMIT: 10/02/2016 RM/LOC: 415 [facility] MR#: [id number] 2620 [facility] [address] [place], [place] [address] SERA HART [address] [place] [address] Discharge Summary SEX: M AGE: 75 : 1940 skilled care may be more prolonged. At the time of dismissal, he was on: 1. Celexa 20 mg daily. 2. Decadron taper. 3. Glucophage 500 p.o. b.i.d. 4. Lanoxin 0.125 daily. 5. Pepcid 20 p.o. b.i.d. 6. Zebeta 5 mg daily. 7. DuoNeb t.i.d. and p.r.n. 8. Low-dose sliding scale insulin. He will follow up closely with Oncology, Radiation Oncology, and Neurosurgery. Jon Elizabeth MD/ agnieszkal JOB #: [id number] CC: Jon Elizabeth MD, Attending Physician Jon Elizabeth MD, Family Physician Jassi Maki MD
== END 2016-10-12 12:00 | disposition short-term general hospital (02) | DRG 25 ==
LOC: ER 10:23 → 5MS 13:00 → 3ICU 10-05 19:45 → 4PCU 10-09 00:14
PROVIDERS: ADMIT Internal Medicine
PROC: 00BC0ZX Excision of Cerebellum, Open Approach, Diagnostic (ICD-10-PCS; principal; 2016-10-05)
PROC: 00U20JZ Supplement Dura Mater with Synthetic Substitute, Open Approach (ICD-10-PCS; principal; 2016-10-05)
PROC: 00CC0ZZ Extirpation of Matter from Cerebellum, Open Approach (ICD-10-PCS; 2016-10-06)
DX: C79.31 Secondary malignant neoplasm of brain (principal); G93.6 Cerebral edema; J44.9 Chronic obstructive pulmonary disease, unspecified; C34.90 Malignant neoplasm of unspecified part of unspecified bronchus or lung; E11.9 Type 2 diabetes mellitus without complications; I48.91 Unspecified atrial fibrillation; R13.10 Dysphagia, unspecified; H53.2 Diplopia; F32.9 Major depressive disorder, single episode, unspecified; I25.10 Atherosclerotic heart disease of native coronary artery without angina pectoris; Z79.01 Long term (current) use of anticoagulants; Z87.891 Personal history of nicotine dependence; Z95.5 Presence of coronary angioplasty implant and graft; Z95.1 Presence of aortocoronary bypass graft

== ENCOUNTER 2016-10-12 10:36 | Inpatient (IN) | payer MEDICARE, OTHER ==
[~2016-10-12] VITALS: Ht 185.4 cm; Wt 95.0 kg
[2016-10-23] MEDS ORDERED: LANOXIN DPS0.125 MG PO (08:31)
[2016-10-23] MEDS ORDERED: GLUCOPHAGE DPS850 MG PO (08:31)
[2016-10-23] MEDS ORDERED: CELEXA DPS20 MG PO (08:31)
[2016-10-23] MEDS ORDERED: ZEBETA5 MG PO (08:31)
[2016-10-23] MEDS ORDERED: VITAMIN B-121000 MCG PO (08:32)
[2016-10-23] MEDS ORDERED: TYLENOL DPS325 MG PO (08:32)
[2016-10-23] MEDS ORDERED: VITAMIN D31000 UNIT PO (08:32)
[2016-11-15] MEDS ORDERED: KEPPRA DPS500 MG PO (13:58)
[2016-11-15] MEDS ORDERED: LANOXIN DPS0.125 MG PO (13:59)
[2016-11-15] MEDS ORDERED: LOVENOX DP40 MG/0.4 SQ (14:01)
[2016-11-15] MEDS ORDERED: NOVOLIN R100 UNIT/1 SQ (14:03)
[2016-11-15] MEDS ORDERED: DECADRON-DPS4 MG PO (14:04)
[2016-11-15] MEDS ORDERED: NOVOLIN N100 UNIT/1 SQ (14:05)
[2016-11-15] MEDS ORDERED: NORMAL SALINE FL5 ML IV (14:05)
--- NOTE | 2016-11-23 14:36 | DS ---
ADMIT: 10/12/2016 RM/LOC: 614 [facility] MR#: [id number] 2620 [facility] [address] [place], [place] [address] SERA HART [address] [place] [address] General Discharge Summary SEX: M AGE: 75 : 1940 ADMISSION DATE: 10/12/2016 DISCHARGE DATE: 10/22/2016 DISCHARGE DIAGNOSES: Brain dysfunction 02.1, nontraumatic. 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 More specifically metastatic non- small cell lung cancer to right temporal lobe and right cerebellum with hemorrhage, status post right retrosigmoid suboccipital craniotomy for biopsy on 10/05/2016, followed by worsening edema and compression with deficits status post right retrosigmoid craniotomy for evacuation of cerebellar hemorrhage and tumor on 10/06/2016 with diplopia, dysphagia, incoordination and balance, muscle weakness, difficulty in self-care and walking, other comorbid conditions per initial H and P. Other diagnoses per hospital course below. HOSPITAL COURSE: Please see my initial H and P for details prior to transfer to the IRU. Mechanical DVT prophylaxis with early ambulation, sliding scale insulin, pain and bowel regimen adjusted. Iron B12 and vitamin D added to lab from the morning of admission. Dietitian followed to optimize nutrition. Pharmacy followed to optimize medication management. [id number]-Aduu maintained. PVR 118. Levemir started at night. Discontinue scheduled Novolin. Accu-Cheks changed to q.a.c. at bedtime. Bowel regimen adjusted. DuoNeb changed, adjusted for pulmonary. PVR 52 mL on followup. Levemir decreased to 5 units for diabetes. Pepcid changed to daily for GERD. DuoNeb discontinued. IV medications no longer necessary. Fioricet for headache. OxyIR for pain. Lab was monitored regularly. Pepcid no longer necessary. Vitamin D deficiency replaced. B12 deficiency replaced. Levemir discontinued. Metformin increased for diabetes. Port de-accessed after labs drawn. Speech language pathology upgraded to thin liquids on 10/19/2016. Sliding scale insulin discontinued, but we continued Accu-Cheks q.a.m. before fasting and supper. The patient was medically stable at time of discharge. Please see IRU interdisciplinary discharge summary for details regarding progress in therapy. DISCHARGE DISPOSITION: Sister Tacho' home. Will go to [facility] daily for noon meals. Sister will call if formal outpatient therapy services needed, but the patient refused any further outpatient therapy. DISCHARGE MEDICATIONS: Please see discharge med rec. FOLLOWUP: Dr. Elizabeth in 2 to 3 weeks, Dr. Carroll in 7 to 10 days, Dr. Guevara in 7 to 10 days, and Neurosurgery, Shena Contreras in 2 weeks. Gunnar Johns MD/ connor JOB #: [id number] CC:
[2016-12-02] MEDS ORDERED: DECADRON-DPS1 MG PO (07:59)
[2016-12-02] MEDS ORDERED: DECADRON-DPS4 MG PO ×2 (07:59)
[2016-12-02] MEDS ORDERED: KEPPRA DPS500 MG PO (08:00)
[2016-12-02] MEDS ORDERED: DUONEB DPS3 ML IH (08:00)
[2016-12-02] MEDS ORDERED: VANTIN DPS200 MG PO (08:00)
[2016-12-02] MEDS ORDERED: LOVENOX DP40 MG/0.4 SQ (08:01)
[2016-12-02] MEDS ORDERED: TYLENOL DPS325 MG PO (08:01)
== END 2016-10-22 11:35 | disposition home or self-care (01) | DRG 949 ==
LOC: 6IRU 12:25
PROVIDERS: ADMIT Physical Medicine & Rehabilitation
DX: Z48.3 Aftercare following surgery for neoplasm (principal); C79.31 Secondary malignant neoplasm of brain; I11.0 Hypertensive heart disease with heart failure; C34.90 Malignant neoplasm of unspecified part of unspecified bronchus or lung; I50.9 Heart failure, unspecified; J44.9 Chronic obstructive pulmonary disease, unspecified; R13.10 Dysphagia, unspecified; F32.9 Major depressive disorder, single episode, unspecified; I48.91 Unspecified atrial fibrillation; K21.9 Gastro-esophageal reflux disease without esophagitis; E11.9 Type 2 diabetes mellitus without complications; M62.81 Muscle weakness (generalized); H53.2 Diplopia; R27.8 Other lack of coordination; E53.8 Deficiency of other specified B group vitamins; R26.89 Other abnormalities of gait and mobility; R51 Headache; E55.9 Vitamin D deficiency, unspecified; E78.5 Hyperlipidemia, unspecified; I25.10 Atherosclerotic heart disease of native coronary artery without angina pectoris; Z95.1 Presence of aortocoronary bypass graft; Z87.891 Personal history of nicotine dependence